=== PATIENT | female | born 1990 | race Caucasian/White ===

== ENCOUNTER 2022-05-25 14:00 | Outpatient (RCR) | payer OTHER, SELFPAY ==
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
[2022-03-13 12:34] VITALS: O2SAT 100
--- NOTE | 2022-04-11 08:28 | STOPPROG ---
Assessment and note entered by Ev Balderas TURKEY PICKER These treatments will address the objective and functional deficits as defined above. The patient will be advanced safely and appropriately in order for the patient to progress towards his/her prior level of function. Additional exercises will be introduced and as well as a comprehensive home exercise program upon discharge, if needed, ?to ensure carryover of functional gains achieved in the clinic. This treatment plan has been reviewed and agreement upon by the patient.
[2022-04-13 12:40] VITALS: O2SAT 100
--- NOTE | 2022-05-11 17:27 | STOPPROG ---
Assessment and note entered by Ev Balderas SHIPFITTER APPRENTICE Evaluation Information Assessment Status Progress - Pt Not Present Assessment ST Clinical Summary PROGRESS NOTE AND REQUEST FOR ADDITIONAL SPEECH THERAPY This patient has been seen for a Speech Evaluation on 03/01/22 with thirteen subsequent treatment sessions focusing on focus, attention, rapid word- finding, and memory/recall along with a variety of organizational activies. Patient was asked to recall pictured items rapidly and did so with occasional delays in response time. She was then requested to rapidly name items related to her occupation, such as to name three common antibiotics quickly, name three non-medication treatments for pain, three common problems that could occur in a woman, etc. Patient found this challenging but also was grateful that this task caused her to focus on job-related tasks . Patient was asked to complete three separate tasks in writing, then instructed that at random times, therapist would instruct her to switch to the new task and work at it quickly until the next task. Again, she found this challenging but also stated it can be similar to her job at work. The Scales of Cognitive Abilities was presented and patient exhibited the following difficulties: 1. Difficulty deterining the next step in a visual pattern given three initial steps. 2. Difficulty recalling 5 words immediately after presented. 3. Difficulty recalling 5 unrelated words after 30 second delay. 4. Difficulty recalling words given a short story after instruction to specifically pay attention to /recall the words to recall. 5. Difficulty recalling information in a complex short story given open-ended questions. Results of this assessment indicate that patient continues to exhibit deficits in the area of thought organization of visual information and recall of new information presented aloud. How these deficits may impact her ability to perform her job as she had prior to the traumatic brain injury are as follows:
== END 2022-05-26 11:06 | disposition home or self-care (01) ==
LOC: ANHST 14:00
DX: S06.9XAD Unspecified intracranial injury with loss of consciousness status unknown, subsequent encounter (principal); R41.3 Other amnesia
CPT/HCPCS: 92507; 92523

== ENCOUNTER 2022-05-31 10:03 | Outpatient (RCR) | payer OTHER, SELFPAY ==
[2022-05-26 11:06] VITALS: O2SAT 100
--- NOTE | 2022-05-31 12:22 | PCSTNOTE ---
This chart is being continued from previous chart [id number].
--- NOTE | 2022-06-06 15:18 | PCSTNOTE ---
The patient treatment was not able to be completed on 06/05 due to illness. Will plan to continue treatment per plan of care.
--- NOTE | 2022-06-12 08:25 | PCSTNOTE ---
Addendum to 05/31/22 note: Patient had been asked to recall information from four orally presented paragraphs from the previous week; she had been given the stories aloud and requested to write down what she thought would be pertinent information. She did have difficulty recalling two specific pieces of information during that task. Today she recalled 100% of the information without having to refer to the paper in my presence. She then followed multi-unit oral directions with 100% accuracy. Patient also was asked to prioritize and sequence 20 related, [id number] tasks and did so with 90% accuracy, not fully knowing how each item was related to another item. Therapist will discuss progress with peer to determine any additional challenging tasks; will consider discharge if no additional more challenging tasks can be presented. Patient was made aware of impending discharge.
--- NOTE | 2022-06-12 08:35 | STOPDC ---
Assessment and note entered by Ev Balderas PRINT MACHINE OPERATOR Evaluation Information Assessment Status Discharge - Pt Not Presen Assessment ST Clinical Summary DISCHARGE SUMMARY This patient has been seen at this outpatient facility for an initial cognitive evaluation and then follow-up treatments to address cognitive skills including memory, recall, focus, attention to detail, ability to divide attention, deductive reasoning, along with several other word-finding tasks. During patient's last visit, she exhibited good recall of new information presented the previous session and was asked to study and recall the information during the last session; she exhibited 100% recall of this information without written cues. Patient also was presented with 20 random tasks (organizing speech therapy shelves with books/materials) unrelated to her job, and requested to organize and sequence the items so they would be easy for therapist to find. Patient exhibited good ability to organize and sequence items at 90% accuracy which was deemed successful as she would not be completely familiar with speech therapy tasks. Overall, patient exhibited significant improvement in all areas. Patient is being discharged with goals achieved. It is suggested that patient have a mentor/ histology supervisor when she returns to work to answer questions she may have and to oversee her recall and decision-making process until she feels she is ready to return to independence. Plan of Care ST Services Indicated No
== END 2022-06-12 14:56 | disposition home or self-care (01) ==
LOC: ANHST 10:03
DX: S06.9XAD Unspecified intracranial injury with loss of consciousness status unknown, subsequent encounter (principal); R41.3 Other amnesia
CPT/HCPCS: 92507